=== PATIENT | male | born 2000 | race Caucasian/White ===

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

== ENCOUNTER 2021-12-09 16:13 | Emergency (ER) | payer OTHER, MEDICAID ==
[2021-12-09] MEDS ORDERED: IBUPROFEN800 MG PO (20:20)
== END 2021-12-09 20:48 | disposition home or self-care (01) ==
LOC: ER1 16:13
DX: S16.1XXA Strain of muscle, fascia and tendon at neck level, initial encounter (principal); S29.012A Strain of muscle and tendon of back wall of thorax, initial encounter; S80.02XA Contusion of left knee, initial encounter; S80.01XA Contusion of right knee, initial encounter; R55 Syncope and collapse; F84.0 Autistic disorder; V89.2XXA Person injured in unspecified motor-vehicle accident, traffic, initial encounter; W22.10XA Striking against or struck by unspecified automobile airbag, initial encounter; Y92.410 Unspecified street and highway as the place of occurrence of the external cause
CPT/HCPCS: 70450; 71045; 72125; 72128; 73562; 99284